=== PATIENT | female | born 1970 | race Two or more races ===

== ENCOUNTER 2023-01-20 10:03 | Emergency (ER) | payer OTHER, MEDICAID ==
[~2023-01-20] VITALS: Ht 160 cm; Wt 80.5 kg
[~2023-01-20 10:03] MED LIST: BENA5TAB9 PO; BENAPOW2 XX; GLYB2.5T8 PO; HYDR500T13 PO; IBUP200T2 PO; METF-489 PO; SIMV10TA20 PO; TRAZADONE
[2023-01-20 11:04] VITALS: BP 173/84
== END 2023-01-20 12:23 | disposition home or self-care (01) ==
LOC: ER 10:03
DX: S53.402A Unspecified sprain of left elbow, initial encounter (principal); E11.9 Type 2 diabetes mellitus without complications; E78.5 Hyperlipidemia, unspecified; I10 Essential (primary) hypertension; Z79.899 Other long term (current) drug therapy; Z98.890 Other specified postprocedural states; W01.0XXA Fall on same level from slipping, tripping and stumbling without subsequent striking against object, initial encounter; Y93.89 Activity, other specified; Y92.89 Other specified places as the place of occurrence of the external cause; Y99.8 Other external cause status
CPT/HCPCS: 73080; 73090

== ENCOUNTER 2023-09-11 19:53 | Emergency (ER) | payer OTHER, MEDICAID ==
[~2023-09-11] VITALS: Ht 157.5 cm; Wt 77.2 kg
[2023-09-11 20:45] LABS: Basophils # (auto) 0 10 ^3/uL (0-0.2); Basophils % (auto) 0.2 % (0.0-2.0); Eosinophils # (auto) 0.2 10 ^3/uL (0-0.8); Eosinophils % (auto) 1.5 % (0.0-7.0); Hematocrit 42.4 % (36.0-46.0); Hemoglobin 14.2 g/dL (12.2-16.2); Lymphocytes # (auto) 5.5 10 ^3/uL (0.4-5.4); Lymphocytes % (auto) 45.5 % (10.0-50.0); Mean Corpuscular Hgb Conc. 33.6 g/dL (32.0-36.0); Mean Corpuscular Volume 86.4 fL (80.0-100.0); Monocytes # (auto) 0.7 10 ^3/uL (0-1.3); Monocytes % (auto) 6.1 % (0.0-12.0); Neutrophils # (auto) 5.6 10 ^3/uL (1.6-8.6); Neutrophils % (auto) 46.7 % (37.0-80.0); Nucleated Red Blood Cells % 0.1 %; Red Cell Distribution Width 12.8 % (11.8-14.3)
[2023-09-11 20:50] LABS: Chloride 108 mmol/L (98-107); Potassium 3.8 mmol/L (3.5-5.1); Sodium 142 mmol/L (136-145)
[2023-09-11 20:51] LABS: Anion Gap 7 (5-15); Calcium 9.6 mg/dL (8.5-10.1); Carbon Dioxide 27 mmol/L (20-30)
[2023-09-11 20:56] LABS: Blood Urea Nitrogen 9 mg/dL (9-23); Glucose 155 mg/dL (74-106)
[2023-09-11] MEDS ORDERED: CEPH250C PO (22:17)
[2023-09-11 22:49] VITALS: BP 142/67; PULSE 93; RESP 18; TEMP 98.1; O2SAT 99
== END 2023-09-11 22:52 | disposition home or self-care (01) ==
LOC: ER 19:53
DX: N80.03 Adenomyosis of the uterus (principal); N93.9 Abnormal uterine and vaginal bleeding, unspecified; I10 Essential (primary) hypertension; E11.9 Type 2 diabetes mellitus without complications; E78.5 Hyperlipidemia, unspecified; Z86.2 Personal history of diseases of the blood and blood-forming organs and certain disorders involving the immune mechanism; Z85.9 Personal history of malignant neoplasm, unspecified; Z98.890 Other specified postprocedural states; Z79.899 Other long term (current) drug therapy
CPT/HCPCS: 36415; 76830; 76856; 80048; 85025